=== PATIENT | male | born 1945 | race Caucasian/White ===

== ENCOUNTER 2016-12-13 13:51 | Outpatient (CLI) | payer MEDICARE ==
[2014-12-22 11:22] VITALS: BP 145/89
== END 2016-12-13 13:52 ==
LOC: CARD 13:51
PROVIDERS: ATTEND Internal Medicine Cardiovascular Disease
DX: I48.91 Unspecified atrial fibrillation (principal); I25.10 Atherosclerotic heart disease of native coronary artery without angina pectoris

== ENCOUNTER 2017-04-18 14:26 | Outpatient (CLI) | payer MEDICARE ==
[2014-12-22 11:22] VITALS: BP 145/89
== END 2017-04-18 14:27 ==
LOC: CARD 14:26
PROVIDERS: ATTEND Internal Medicine Cardiovascular Disease
DX: I35.0 Nonrheumatic aortic (valve) stenosis (principal); I48.91 Unspecified atrial fibrillation; Z79.01 Long term (current) use of anticoagulants; I25.10 Atherosclerotic heart disease of native coronary artery without angina pectoris; I10 Essential (primary) hypertension; E78.5 Hyperlipidemia, unspecified
CPT/HCPCS: G0463 ×2

== ENCOUNTER 2017-04-21 08:49 | Outpatient (CLI) | payer MEDICARE ==
[2014-12-22 11:22] VITALS: BP 145/89
== END 2017-04-21 08:50 ==
LOC: LAB 08:49
PROVIDERS: ATTEND Internal Medicine Cardiovascular Disease
DX: I35.0 Nonrheumatic aortic (valve) stenosis (principal); Z79.899 Other long term (current) drug therapy
CPT/HCPCS: 36415; 84443

== ENCOUNTER 2017-11-21 10:43 | Outpatient (CLI) | payer MEDICARE ==
[2014-12-22 11:22] VITALS: BP 145/89
== END 2017-11-21 10:44 ==
LOC: CARD 10:43
PROVIDERS: ATTEND Internal Medicine Cardiovascular Disease
DX: I48.91 Unspecified atrial fibrillation (principal); I25.10 Atherosclerotic heart disease of native coronary artery without angina pectoris; I35.0 Nonrheumatic aortic (valve) stenosis; I10 Essential (primary) hypertension; E78.5 Hyperlipidemia, unspecified; Z79.899 Other long term (current) drug therapy; N18.9 Chronic kidney disease, unspecified
CPT/HCPCS: G0463

== ENCOUNTER 2017-11-23 08:59 | Outpatient (CLI) | payer MEDICARE ==
[2014-12-22 11:22] VITALS: BP 145/89
[2017-11-23 10:09] LABS: eGFR (African) > 60; eGFR (Non-African) > 60
== END 2017-11-23 09:00 ==
LOC: LAB 08:59
PROVIDERS: ATTEND Internal Medicine Cardiovascular Disease
DX: I25.10 Atherosclerotic heart disease of native coronary artery without angina pectoris (principal); I35.0 Nonrheumatic aortic (valve) stenosis; I48.91 Unspecified atrial fibrillation
CPT/HCPCS: 36415; 80048; 84443

== ENCOUNTER 2018-01-02 10:59 | Outpatient (CLI) | payer MEDICARE ==
[2014-12-22 11:22] VITALS: BP 145/89
== END 2018-01-02 11:00 ==
LOC: CARD 10:59
PROVIDERS: ATTEND Internal Medicine Cardiovascular Disease
DX: I35.0 Nonrheumatic aortic (valve) stenosis (principal)

== ENCOUNTER 2018-07-31 10:42 | Outpatient (CLI) | payer MEDICARE ==
[2014-12-22 11:22] VITALS: BP 145/89
== END 2018-07-31 10:43 ==
LOC: CARD 10:42
PROVIDERS: ATTEND Internal Medicine Cardiovascular Disease
DX: I25.10 Atherosclerotic heart disease of native coronary artery without angina pectoris (principal); Z86.73 Personal history of transient ischemic attack (TIA), and cerebral infarction without residual deficits; I10 Essential (primary) hypertension; E78.5 Hyperlipidemia, unspecified; E11.9 Type 2 diabetes mellitus without complications
CPT/HCPCS: G0463